=== PATIENT | male | born 1980 | race Caucasian/White ===

== ENCOUNTER 2018-11-28 09:41 | Emergency (ER) | payer MEDICAID, SELFPAY ==
[2018-11-28] VITALS (11 sets, daily range): BP systolic 131–149; BP diastolic 77–96; PULSE 65–85; RESP 14–18; TEMP 36.7; O2SAT 95–100; BMI 18.6
--- NOTE | 2018-11-28 09:57 | EKG12_ITS ---
Test Reason : SUICIDE Blood Pressure : / mmHG Vent. Rate : 062 BPM Atrial Rate : 062 BPM P-R Int : 144 ms QRS Dur : 088 ms QT Int : 392 ms P-R-T Axes : 072 -49 045 degrees QTc Int : 397 ms Normal sinus rhythm Left anterior fascicular block Abnormal ECG Confirmed by LOWELL CHAU, ROHINI ([id number]), visual effects editor EDDIE ROMERO ([id number]) on 12/01/2018 11:38:54 AM Referred By: OLYA/GUERA Confirmed By:ODILON ETIENNE MD
--- NOTE | 2018-11-28 10:05 | RAD_ITS ---
STUDY: X-RAY CHEST REASON FOR EXAM: Male, 38 years old. Chest pain. TECHNIQUE: Single AP portable view of the chest. COMPARISON: None. FINDINGS: The lungs are clear and expanded. There is no demonstrated pleural abnormality. Normal size heart. Normal mediastinum and cheri. Normal visualized pulmonary arteries. Normal visualized aortic arch and descending thoracic aorta. Normal visualized thoracic spine. Normal visualized ribs, clavicles, and shoulders. There is no demonstrated abnormality of the visualized soft tissue structures of the upper abdomen. RAD/Chest 1 View (Portable) IMPRESSION: Normal x-ray examination of the chest. Electronically Signed: Shaq Chew, at 10:46 EDT , Service support ,
[2018-11-28 10:37] LABS: Mucous, Urine 0 SEEN /hpf (<or=2+)
[2018-11-28 10:41] LABS: Absolute Lymphocyte Count 1.49 X10^3/uL (0.83-4.51); Absolute Neutrophil Count 5.6 X10^3/uL (2.0-7.7); Basophil# 0.03 X10^3/uL; Basophil% 0.4 % (0-1); Eosinophil# 0.13 X10^3/uL; Eosinophils% 1.7 % (0-5); Hematocrit 45.5 % (40-54); Hemoglobin 15.3 g/dL (13.0-16.5); Lymphocyte # 1.49 X10^3/ul (4.0); Lymphocyte % 19.1 % (19-41); Mean Corp Hgb Conc 33.6 g/dL (32-36); Mean Corpuscular Hgb 33.3 pg (27.0-32.0); Mean Corpuscular Volume 98.9 fL (80-94); Monocyte# 0.49 X10^3/uL; Monocyte% 6.3 % (0-10); NRBC Flagged by Analyzer 0 % (0-5); Neutrophil # 5.63 X10^3/uL (2.7-7.7); Neutrophil % 72.1 % (47-70); POSITIVE MORPHOLOGY YES; Platelet Count 145 K/mm3 (150-450); RBC Distribution Width CV 13.6 % (11.6-14.6); RBC Distribution Width SD 49.1 fl (35.1-43.9); White Blood Count 7.8 K/mm3 (4.4-11.0)
[2018-11-28 10:47] LABS: Differential Indicated SCAN CRITERIA MET
[2018-11-28 10:50] LABS: Color, Urine Yellow (Yellow); Glucose, Dipstick Normal (Normal); Ketone-Dipstick 5 mg/dl (Negative); Leukocyte Esterase-Dipstick 500 /ul (Negative); Nitrite-Dipstick Positive (Negative); Occult Blood-Urine 25 /ul (Negative); Protein-Dipstick 30 mg/dl (Negative); Urine Bilirubin Dipstick Negative (Negative); Urine Clarity Sl. Cloudy (Clear); Urine Urobilinogen 4 mg/dl (Normal)
[2018-11-28 11:00] LABS: Bacteria 2+ /hpf (None Seen); Red Blood Cells-Urine 0-5 SEEN /hpf (0-5); Squamous Epithelial Cells - UA 0-5 SEEN /hpf (0-5); White Blood Cells 25-50 SEEN /hpf (0-5)
[2018-11-28 11:09] LABS: Amphetamine Urine VISTA NEGATIVE (<1000 ng/mL); Barbiturate Urine VISTA NEGATIVE (< 200 ng/mL); Benzodiazepine Urine VISTA NEGATIVE (< 200 ng/mL); Cocaine Urine VISTA NEGATIVE (< 300 ng/mL); Ecstacy Urine VISTA NEGATIVE (< 500 ng/mL); Methadone Urine VISTA NEGATIVE (< 300 ng/mL); PCP Urine VISTA NEGATIVE (< 25 ng/mL); THC Urine VISTA POSITIVE (< 50 ng/mL); Vista UDS pH Range 6
[2018-11-28 11:13] LABS: ALB/GLOB Ratio 1.1 RATIO (0.9-2.4); AST(SGOT) 15 U/L (15-37); Alanine Aminotransfer ALT/SGPT 21 U/L (16-61); Albumin, Serum 3.8 g/dL (3.2-5.0); Alkaline Phosphatase 81 U/L (45-117); Anion Gap 4 (5-15); BUN 17 mg/dL (7-18); BUN/Creat Ratio 16.3 RATIO (10-20); Calcium,Total 9.1 mg/dL (8.5-10.1); Chloride 108 mmol/L (98-107); Creatinine, Serum 1.04 mg/dL (0.70-1.30); EST Glomerular Filtration Rate 85 mL/min (>60); Est Glom Filt Rate - Afr Amer 102 mL/min (>60); Estimated Creatinine Clearance 73.53 ml/min; Globulin 3.4 g/dL (2.2-4.2); Glucose 94 mg/dL (74-106); Protein, Total 7.2 g/dL (6.4-8.2); Sodium Level 139 mmol/L (136-145); Thyroid Stim Hormone (TSH) 1.45 uIU/mL (0.358-3.74)
--- NOTE | 2018-11-28 11:24 | ED.VISSUMM ---
- ER Visit Summary Date of Service: 11/28/18 Chief Complaint: Mental health clearance History of Present Illness: The patient is a 38 M brought in by law enforcement for clearance for admission to [facility]. Patient is having paranoia and delusions. He could not tell me if he is suicidal or not. Patient is denying any past mental health diagnosis, but he did say that he was hospitalized for suicidal ideation when his mom in the past. He has no other complaints at this time. He says he takes no medications. Physical Examination: Afebrile and vital signs unremarkable. Patient is in a penitentiary jumpsuit and handcuffs. Head and neck atraumatic. Heart regular peer lungs clear. Abdomen soft. Skin appears unremarkable. I am concerned the patient may have some internal stimuli. He has difficulty answering my questions. He is paranoid and delusional. Test Results: EKG shows sinus rhythm at a rate of 62. Chest x-ray normal. TSH normal. Urinalysis shows signs of infection. CBC, CMP, tox screen unremarkable except for THC. Alcohol level pending. Emergency Department Course and Treatment: Patient had a sitter because of his severe symptoms and unable to track for safety. He had a pretty unremarkable work-up. He has signs of UTI and he tested positive for THC. He is not having symptoms of UTI. He is not septic. I do not believe this is causing his symptoms. Urine culture was ordered. We will treat with Keflex. Crisis will evaluate the patient for placement. Treatment Plan: Keflex Disposition: O[facility] Impression: 1. Psychosis 2. UTI This note was generated with panpan dictation software. It may contain incorrect words, spelling, and punctuation that were not noted in review of the chart prior to signing ED Disposition - Plan for ED Patient: Referrals: Shantell Zeng [Primary Care Provider] -
[2018-11-28 11:39] LABS: Alcohol, Blood (Medical)-Serum < 3.0 mg/dL
--- NOTE | 2018-11-28 12:12 | NURSING ---
CRISIS IN ROOM
[2018-11-28] MEDS: Cephalexin 250 MG Capsule 500 MG PO ×2 (12:17→19:28)
--- NOTE | 2018-11-28 14:01 | NURSING ---
Spoke with Romina [facility]. D/t insurance, they are continuing to look for placement.
--- NOTE | 2018-11-28 18:51 | ED.RN ---
[facility] CALLED REPORTING THAT THEY ARE REVIEWING THE PT CHART AND THAT THEY DO NOT CURRENTLY HAVE ANY MALE BEDS AVAILABLE. REPORTS THAT IT MAY NOT BE UNTIL TOMORROW. SABRINA RUSSELL INFORMED.
--- NOTE | 2018-11-28 20:36 | ED.RN ---
second dose of keflex given at 1928 11/28/2018.
[2018-11-29] VITALS (16 sets, daily range): BP systolic 113–136; BP diastolic 64–87; PULSE 67–81; RESP 14–19; O2SAT 97–99
[2018-11-29] MEDS: Cephalexin 250 MG Capsule 500 MG PO ×2 (01:04→08:05)
--- NOTE | 2018-11-29 01:05 | ED.RN ---
3RD DOSE OF KEFLEX GIVEN AT 0105. MAR IS NOT REFLECTING THE MEDIATIONS BEING DUE IT SHOULD BE. ORDERED Q 6HR KEFLEX [facility] IS SCANNING IT IN FOR DAYS IN THE FUTURE. CHARGE NURSE JOSIE MADE AWARE.
--- NOTE | 2018-11-29 07:52 | NURSING ---
CALLED [facility], TALKED TO NICHOLE. SHE SAID CHART WAS FAXED TO [facility] YESTERDAY. ASKED HER TO HAVE NEW COUNSELOR TO CALL US WITH UPDATE AFTER THEIR SHIFT CHANGE
--- NOTE | 2018-11-29 09:08 | NURSING ---
PER JONATHON, KENDRICK, PATIENT SHOULD BE TRANSFERRED TODAY.
[2018-11-29] MEDS: RisperiDONE 0.5 MG Tablet PO (10:58)
--- NOTE | 2018-11-29 11:03 | NURSING ---
[facility] AND LEFT MESSAGE FOR AN UPDATE ON PATIENT
--- NOTE | 2018-11-29 11:50 | NURSING ---
CALLED CR[facility], TALKED TO JOE. HE WILL TALK TO JONATHON AND SOMEONE WILL LET US KNOW ABOUT WHAT'S GOING ON
--- NOTE | 2018-11-29 12:08 | ED.RN ---
crisis called to update that no changes at this time. [facility] will be available to accept this afternoon or early evening.
--- NOTE | 2018-11-29 14:53 | NURSING ---
JONATHON, CRISIS, CALLED. [facility] IS READY FOR PATIENT
--- NOTE | 2018-11-29 14:55 | ED.RN ---
UNIT C1, N-N [phone] EXT [phone], DR. MA
--- NOTE | 2018-11-29 15:01 | NURSING ---
CALLED [facility] FOR TRANSPORT ETA IS 1800 CALLED [facility] FOR TRANSPORT ETA IS FROM [place]
== END 2018-11-29 15:33 ==
PROVIDERS: Emergency Provider Emergency Medicine; Family Provider Family Medicine; PCP Family Medicine
DX: F29 Unspecified psychosis not due to a substance or known physiological condition (principal); N39.0 Urinary tract infection, site not specified; F12.90 Cannabis use, unspecified, uncomplicated; F32.9 Major depressive disorder, single episode, unspecified; F41.9 Anxiety disorder, unspecified; R45.851 Suicidal ideations
CPT/HCPCS: 71045; 80053; 80307; 80320; 81001; 84443; 85025; 87077; 87086; 87088; 87186; 93005; 96372; 99285; G0480; J3486

== ENCOUNTER 2023-08-29 10:39 | Emergency (ER) | payer MEDICAID, SELFPAY ==
[2023-08-29 10:40] VITALS: BP 161/68; PULSE 68; RESP 18; TEMP 36.2; O2SAT 100; BMI 18.1
--- NOTE | 2023-08-29 11:32 | EDS_ITS ---
HPI <MARBIN La - Last Filed: 08/29/23 20:24> HPI - Psych History of Present Illness Chief Complaint: Mental Health Narrative Narrative: Patient presenting today after being sent in by police for medical clearance for psychiatric placement. Patient was arrested evening due to disorderly conduct and began smearing his feces all over himself and at the skilled nursing cell, he was full body slamming against the cell door and window, he was also masturbating. Police report that patient was displaying psychotic behaviors and was evaluated by crisis who felt that he would benefit from admission to a psychiatric facility. He does have a history of drug abuse including crack cocaine and marijuana. He denies SI and hallucinations. He reports that he does not have any thoughts of hurting others unless, he gets pissed off. He has been admitted in the past to a psychiatric facility for an unspecified psychotic disorder. PFSH <MARBIN La - Last Filed: 08/29/23 20:24> [facility] Medical History Infected dental caries Seizures Stroke Allergy/AdvReac Type Severity Reaction Status Date / Time bee venom protein (honey bee) Allergy Other Verified 08/29/23 10:39 erythromycin base Allergy Swelling Verified 08/29/23 10:39 strawberry Allergy Hives Verified 08/29/23 10:39 Social History Smoking Status: Current every day smoker tobacco type: cigarettes alcohol intake: current ROS <MARBIN La - Last Filed: 08/29/23 20:24> ROS ED Constitutional Constitutional ED: Denies chills or fever(s) Cardiovascular Cardiovascular: Denies chest pain Respiratory/Chest Respiratory/Chest: Denies dyspnea Gastrointestinal Gastrointestinal: Denies abdominal pain, nausea or vomiting Genitourinary Genitourinary ED: Denies dysuria Musculoskeletal Musculoskeletal: Denies arthralgias or myalgias Integumentary Denies Abrasions Neurologic Neurologic: Denies weakness Psychiatric Psychiatric: Denies anxiety, depression, hallucinations, homicidal ideation, suicidal ideation or suicidal thoughts EXAM <MARBIN La - Last Filed: 08/29/23 20:24> Physical Exam Const Vital Signs: 08/29/23 10:40 08/29/23 16:58 08/29/23 23:39 Temperature 97.2 F L 97.7 F L 98.1 F Temperature Source Temporal Oral Temporal Pulse Rate 68 79 70 Respiratory Rate 18 17 17 Blood Pressure 161/68 H 144/88 H 117/62 Blood Pressure Mean 99 106 80 Pulse Ox 100 98 96 Oxygen Delivery Method Room Air Room Air Room Air 08/30/23 05:00 Temperature Temperature Source Pulse Rate 60 Respiratory Rate 16 Blood Pressure 125/62 H Blood Pressure Mean 83 Pulse Ox 97 Oxygen Delivery Method Room Air Positive well nourished, well developed and no apparent distress General Appearance ED: well developed HEENT Reports normocephalic and head/scalp atraumatic Mouth ED: Yes moist mucous membranes normal Eyes PERRL and EOMs intact bilaterally Neck full ROM and supple Chest Wall inspection of chest normal Resp normal respiratory effort and clear to auscultation bilaterally Cardio regular rate and regular rhythm GI soft to palpation, non-tender, non-distended and no masses Back/Spine normal ROM and normal to inspection Extremity normal to inspection and full ROM Neuro oriented x3, CN's II-XII intact bilaterally, moves all extremities, no focal motor deficits and no sensory deficits noted Sensorium / Orientation: awake and alert Psych cooperative Attitude: bizarre Thought Content: No suicidality and No homicidality Skin no rashes or lesions noted and no wounds <Dr. Gigi Liu, DO - Last Filed: 08/29/23 21:35> Physical Exam Const Vital Signs: 08/29/23 10:40 08/29/23 16:58 08/29/23 23:39 Temperature 97.2 F L 97.7 F L 98.1 F Temperature Source Temporal Oral Temporal Pulse Rate 68 79 70 Respiratory Rate 18 17 17 Blood Pressure 161/68 H 144/88 H 117/62 Blood Pressure Mean 99 106 80 Pulse Ox 100 98 96 Oxygen Delivery Method Room Air Room Air Room Air 08/30/23 05:00 Temperature Temperature Source Pulse Rate 60 Respiratory Rate 16 Blood Pressure 125/62 H Blood Pressure Mean 83 Pulse Ox 97 Oxygen Delivery Method Room Air <Dr. Reji Smith, DO - Last Filed: 08/30/23 07:16> Physical Exam Const Vital Signs: 08/29/23 10:40 08/29/23 16:58 08/29/23 23:39 Temperature 97.2 F L 97.7 F L 98.1 F Temperature Source Temporal Oral Temporal Pulse Rate 68 79 70 Respiratory Rate 18 17 17 Blood Pressure 161/68 H 144/88 H 117/62 Blood Pressure Mean 99 106 80 Pulse Ox 100 98 96 Oxygen Delivery Method Room Air Room Air Room Air 08/30/23 05:00 Temperature Temperature Source Pulse Rate 60 Respiratory Rate 16 Blood Pressure 125/62 H Blood Pressure Mean 83 Pulse Ox 97 Oxygen Delivery Method Room Air MDM <MARBIN La - Last Filed: 08/29/23 20:24> [facility] MDM Narrative Medical decision making narrative: Patient presenting after being pink slipped by crisis after displaying psychotic behaviors at the skilled nursing this weekend. He is here for medical clearance. He denies SI or HI. He did become loud and was disturbing other patients despite being asked multiple times to keep his voice down, for this reason, he was given a dose of Geodon. CBC, BMP are unremarkable, urine tox screen is positive for cannabinoids, alcohol level is negative. Patient is medically cleared and placement is pending. Lab Data Attestation: I reviewed the patient's lab results. Labs: Laboratory Results - last 24 hr 08/29/23 08/29/23 11:34 11:38 WBC 5.1 RBC 4.56 L Hgb 14.7 Hct 45.0 MCV 98.7 H MCH 32.2 H MCHC 32.7 RDW Std Deviation 47.4 H RDW Coeff of Sushant 12.9 Plt Count 135 L MPV 11.2 Immature Gran % (Auto) 0.400 Neut % (Auto) 62.8 Lymph % (Auto) 27.8 Weld % (Auto) 6.8 Eos % (Auto) 1.4 Baso % (Auto) 0.8 Absolute Neuts (auto) 3.2 Absolute Lymphs (auto) 1.43 Nucleated RBC % 0 Sodium 138 Potassium 4.1 Chloride 108 H Carbon Dioxide 27.0 Anion Gap 3 L BUN 13 Creatinine 0.81 Estim Creat Clear Calc 86.99 Est GFR (MDRD) Af Amer 133 Est GFR (MDRD) Non-Af 110 BUN/Creatinine Ratio 16.0 Glucose 96 Calcium 8.9 Urine Opiates Screen NEGATIVE Urine Methadone Screen NEGATIVE Ur Barbiturates Screen NEGATIVE Ur Phencyclidine Scrn NEGATIVE Ur Amphetamines Screen NEGATIVE MDMA (Ecstasy) Screen NEGATIVE U Benzodiazepines Scrn NEGATIVE Urine Cocaine Screen NEGATIVE U Cannabinoids Screen POSITIVE H Ur Drug Screen Comment Ethyl Alcohol < 3.0 <Dr. Gigi Liu, DO - Last Filed: 08/29/23 21:35> [facility] Narrative Medical decision making narrative: Patient presenting after being pink slipped by crisis after displaying psychotic behaviors at the skilled nursing this weekend. He is here for medical clearance. He denies SI or HI. He did become loud and was disturbing other patients despite being asked multiple times to keep his voice down, for this reason, he was given a dose of Geodon. CBC, BMP are unremarkable, urine tox screen is positive for cannabinoids, alcohol level is negative. Patient is medically cleared and placement is pending. 2130: Le. Patient signed out to me has been medically cleared he was given Geodon, no issues during my shift. Patient accepted to [facility] under service Dr. Mcgraw. Lab Data Labs: Laboratory Results - last 24 hr 08/29/23 08/29/23 11:34 11:38 WBC 5.1 RBC 4.56 L Hgb 14.7 Hct 45.0 MCV 98.7 H MCH 32.2 H MCHC 32.7 RDW Std Deviation 47.4 H RDW Coeff of Sushant 12.9 Plt Count 135 L MPV 11.2 Immature Gran % (Auto) 0.400 Neut % (Auto) 62.8 Lymph % (Auto) 27.8 Weld % (Auto) 6.8 Eos % (Auto) 1.4 Baso % (Auto) 0.8 Absolute Neuts (auto) 3.2 Absolute Lymphs (auto) 1.43 Nucleated RBC % 0 Sodium 138 Potassium 4.1 Chloride 108 H Carbon Dioxide 27.0 Anion Gap 3 L BUN 13 Creatinine 0.81 Estim Creat Clear Calc 86.99 Est GFR (MDRD) Af Amer 133 Est GFR (MDRD) Non-Af 110 BUN/Creatinine Ratio 16.0 Glucose 96 Calcium 8.9 Urine Opiates Screen NEGATIVE Urine Methadone Screen NEGATIVE Ur Barbiturates Screen NEGATIVE Ur Phencyclidine Scrn NEGATIVE Ur Amphetamines Screen NEGATIVE MDMA (Ecstasy) Screen NEGATIVE U Benzodiazepines Scrn NEGATIVE Urine Cocaine Screen NEGATIVE U Cannabinoids Screen POSITIVE H Ur Drug Screen Comment Ethyl Alcohol < 3.0 <Dr. Reji Smith, DO - Last Filed: 08/30/23 07:16> MDM MDM Narrative Medical decision making narrative: Patient presenting after being pink slipped by crisis after displaying psychotic behaviors at the skilled nursing this weekend. He is here for medical clearance. He denies SI or HI. He did become loud and was disturbing other patients despite being asked multiple times to keep his voice down, for this reason, he was given a dose of Geodon. CBC, BMP are unremarkable, urine tox screen is positive for cannabinoids, alcohol level is negative. Patient is medically cleared and placement is pending. 2130: Le. Patient signed out to me has been medically cleared he was given Geodon, no issues during my shift. Patient accepted to [facility] under service Dr. Mcgraw. ED attending note: I evaluated the patient in conjunction with the ELSY. I agree with his/her statements and above findings. I have personally performed a face to face assessment of the patient and have reviewed the ELSY Note. I performed a substantive portion of the visit including all aspects of the following. I personally saw the patient performed chart review, physical exam, reviewed labs, imaging (if obtained), and formulated a treatment and management plan. This note was generated with [employer] dictation software. It may contain incorrect words, spelling, and punctuation that were not noted in review of the chart prior to signing. Lab Data Labs: Laboratory Results - last 24 hr 08/29/23 08/29/23 11:34 11:38 WBC 5.1 RBC 4.56 L Hgb 14.7 Hct 45.0 MCV 98.7 H MCH 32.2 H MCHC 32.7 RDW Std Deviation 47.4 H RDW Coeff of Sushant 12.9 Plt Count 135 L MPV 11.2 Immature Gran % (Auto) 0.400 Neut % (Auto) 62.8 Lymph % (Auto) 27.8 Weld % (Auto) 6.8 Eos % (Auto) 1.4 Baso % (Auto) 0.8 Absolute Neuts (auto) 3.2 Absolute Lymphs (auto) 1.43 Nucleated RBC % 0 Sodium 138 Potassium 4.1 Chloride 108 H Carbon Dioxide 27.0 Anion Gap 3 L BUN 13 Creatinine 0.81 Estim Creat Clear Calc 86.99 Est GFR (MDRD) Af Amer 133 Est GFR (MDRD) Non-Af 110 BUN/Creatinine Ratio 16.0 Glucose 96 Calcium 8.9 Urine Opiates Screen NEGATIVE Urine Methadone Screen NEGATIVE Ur Barbiturates Screen NEGATIVE Ur Phencyclidine Scrn NEGATIVE Ur Amphetamines Screen NEGATIVE MDMA (Ecstasy) Screen NEGATIVE U Benzodiazepines Scrn NEGATIVE Urine Cocaine Screen NEGATIVE U Cannabinoids Screen POSITIVE H Ur Drug Screen Comment Ethyl Alcohol < 3.0 Discharge Plan Triage Chief Complaint: Mental Health ED Midlevel Provider: Dilcia Valdez ED Provider: Reji Smith Dx/Rx/DC Orders Clinical Impression: Psychotic disorder, Tetrahydrocannabinol (THC) use disorder, mild, abuse Primary Care Provider: Care Physician,No Primary Referrals: Care Physician,No Primary [Primary Care Provider] - Print Language: [place] Irish Disposition Disposition: Psychiatric Hospital or Unit Discharge Location: [facility]
[2023-08-29 11:45] LABS: Absolute Lymphocyte Count 1.43 X10^3/uL (0.83-4.51); Absolute Neutrophil Count 3.2 X10^3/uL (2.0-7.7); Basophil# 0.04 X10^3/uL; Basophil% 0.8 % (0-1); Eosinophil# 0.07 X10^3/uL; Eosinophils% 1.4 % (0-5); Hemoglobin 14.7 g/dL (13.0-16.5); Lymphocyte # 1.43 X10^3/ul (0.83-4.51); Lymphocyte % 27.8 % (19-41); Mean Corp Hgb Conc 32.7 g/dL (32-36); Mean Corpuscular Hgb 32.2 pg (27.0-32.0); Mean Corpuscular Volume 98.7 fL (80-94); Mean Platelet Vol. 11.2 fl (6.2-12.0); Monocyte# 0.35 X10^3/uL; Monocyte% 6.8 % (0-10); NRBC Flagged by Analyzer 0 % (0-5); Neutrophil # 3.23 X10^3/uL (2.7-7.7); Neutrophil % 62.8 % (47-70); Platelet Count 135 K/mm3 (150-450); RBC Distribution Width CV 12.9 % (11.6-14.6); RBC Distribution Width SD 47.4 fl (35.1-43.9); Red Blood Count 4.56 M/mm3 (4.6-6.2); White Blood Count 5.1 K/mm3 (4.4-11.0)
[2023-08-29 11:57] LABS: Alcohol, Blood (Medical)-Serum < 3.0 mg/dL; Anion Gap 3 (5-15); BUN 13 mg/dL (7-18); Calcium,Total 8.9 mg/dL (8.5-10.1); Chloride 108 mmol/L (98-107); Creatinine, Serum 0.81 mg/dL (0.70-1.30); EST Glomerular Filtration Rate 110 mL/min (>60); Est Glom Filt Rate - Afr Amer 133 mL/min (>60); Estimated Creatinine Clearance 86.99 ml/min; Glucose 96 mg/dL (74-106); Potassium 4.1 mmol/L (3.5-5.1); Sodium Level 138 mmol/L (136-145)
[2023-08-29 12:23] LABS: Amphetamine Urine VISTA NEGATIVE (<1000 ng/mL); Barbiturate Urine VISTA NEGATIVE (< 200 ng/mL); Benzodiazepine Urine VISTA NEGATIVE (< 200 ng/mL); Cocaine Urine VISTA NEGATIVE (< 300 ng/mL); Ecstacy Urine VISTA NEGATIVE (< 500 ng/mL); Methadone Urine VISTA NEGATIVE (< 300 ng/mL); PCP Urine VISTA NEGATIVE (< 25 ng/mL); THC Urine VISTA POSITIVE (< 50 ng/mL); Vista UDS pH Range 6
--- NOTE | 2023-08-29 13:06 | NURSING ---
FAXED CHART TO CRISIS
--- NOTE | 2023-08-29 13:09 | NURSING ---
CRISIS IN ER
[2023-08-29] MEDS: Ziprasidone IM 20 MG/ML VIAL IM (15:03)
[2023-08-29 16:58] VITALS: BP 144/88; PULSE 79; RESP 17; TEMP 36.5; O2SAT 98
--- NOTE | 2023-08-29 22:22 | ED.RN ---
Report given to Sherice RUSSELL at [facility]
[2023-08-29 23:39] VITALS: BP 117/62; PULSE 70; RESP 17; TEMP 36.7; O2SAT 96
[2023-08-30 05:00] VITALS: BP 125/62; PULSE 60; RESP 16; O2SAT 97
[2023-08-30 07:33] VITALS: BP 121/76; PULSE 72; RESP 14; TEMP 36.6; O2SAT 100
--- NOTE | 2023-08-30 07:33 | ED.RN ---
transporting squad in department
== END 2023-08-30 07:39 ==
PROVIDERS: Physician Assistant; Emergency Provider Emergency Medicine; Visit Provider Emergency Medicine
DX: F29 Unspecified psychosis not due to a substance or known physiological condition (principal); F12.10 Cannabis abuse, uncomplicated; F17.200 Nicotine dependence, unspecified, uncomplicated; Z86.73 Personal history of transient ischemic attack (TIA), and cerebral infarction without residual deficits
CPT/HCPCS: 80048; 80307; 80320; 85025; 99285; A4216; G0480; J3486

== ENCOUNTER 2023-09-16 12:50 | Emergency (ER) | payer MEDICAID, SELFPAY ==
[2023-09-16 12:58] VITALS: BP 94/60; PULSE 59; RESP 18; TEMP 37.1; O2SAT 99; BMI 24.2
--- NOTE | 2023-09-16 15:03 | EKG12_ITS ---
Test Reason : SEIZURE Blood Pressure : / mmHG Vent. Rate : 052 BPM Atrial Rate : 052 BPM P-R Int : 166 ms QRS Dur : 098 ms QT Int : 486 ms P-R-T Axes : 068 -52 -66 degrees QTc Int : 451 ms Sinus bradycardia Left anterior fascicular block T wave abnormality, consider inferolateral ischemia Abnormal ECG Confirmed by John Townsend ([id number]), photographic editor NAPOLEON ARNOLD ([id number]) on 09/19/2023 8:13:33 AM Referred By: Confirmed By:John Townsend
--- NOTE | 2023-09-16 15:03 | CT_ITS ---
INDICATION: seizure EXAMINATION: CT BRAIN - CT Head or Brain W/O Contrast Injection TECHNIQUE: Multiple axial images were obtained of the head without intravenous contrast. The protocol utilizes one or more of the following dose reduction techniques: automated exposure control, adjustment of mA and/or kV according to patient size,and/or use of iterative reconstruction technique. IV Contrast dosage and agent: None. RADIATION DOSAGE (If Supplied By Facility): CTDIvol = ( 44.99 ) mGy, DLP = ( 812.98 ) mGycm COMPARISON: No relevant prior comparison study available FINDINGS: BRAIN PARENCHYMA: No intra- or extra-axial hemorrhage. There is encephalomalacia within the left middle cerebral artery territory including the left posterior frontal, lateral occipital and temporal lobes. No evidence of acute infarct. No intracranial mass or mass effect. There is preservation of the tyler/white matter interface. Posterior fossa structures are unremarkable. CSF SPACES: Appropriate for age. No hydrocephalus. Basal cisterns are patent. CALVARIUM, SKULL BASE, PARANASAL SINUSES AND MASTOID AIR CELLS: Clear. No discrete lytic or blastic abnormalities. ORBITS: Both globes, extraocular muscles, optic nerves and retrobulbar fat appear unremarkable. ASPECTS Score for Acute Strokes: 10 CT/Brain/Head without Contrast IMPRESSION: No acute intracranial process. Old left MCA infarct. Electronically Signed: Precious Blake MD at 16:09 EDT ,
[2023-09-16] MEDS: 0.9% Normal Saline (1000mL) 1,000 ML 999 ML IV (15:20)
--- NOTE | 2023-09-16 15:20 | RAD_ITS ---
STUDY: X-RAY CHEST REASON FOR EXAM: Male, 43 years old. Cough. TECHNIQUE: Single frontal view of the chest. COMPARISON: November 28, 2018 FINDINGS: The lungs are clear and expanded. There is no demonstrated pleural abnormality. Normal size heart. Normal mediastinum and cheri. Normal visualized pulmonary arteries. Normal visualized aortic arch and descending thoracic aorta. No abnormality of the visualized soft tissue structures of the upper abdomen. RAD/Chest 1 View (Portable) IMPRESSION: No interval change and no acute or active cardiopulmonary disease. Electronically Signed: Km Spangler MD at 15:28 EDT ,
[2023-09-16 15:24] VITALS: BP 110/64; PULSE 51; RESP 14; O2SAT 98
[2023-09-16 15:29] LABS: Absolute Lymphocyte Count 1.31 X10^3/uL (0.83-4.51); Absolute Neutrophil Count 4.1 X10^3/uL (2.0-7.7); Basophil# 0.03 X10^3/uL; Basophil% 0.5 % (0-1); Eosinophil# 0.01 X10^3/uL; Eosinophils% 0.2 % (0-5); Hematocrit 40.9 % (40-54); Hemoglobin 13.8 g/dL (13.0-16.5); Lymphocyte # 1.31 X10^3/ul (0.83-4.51); Lymphocyte % 22.8 % (19-41); Mean Corp Hgb Conc 33.7 g/dL (32-36); Mean Corpuscular Hgb 32.8 pg (27.0-32.0); Mean Corpuscular Volume 97.1 fL (80-94); Monocyte% 5.2 % (0-10); NRBC Flagged by Analyzer 0 % (0-5); Neutrophil # 4.06 X10^3/uL (2.7-7.7); Neutrophil % 70.8 % (47-70); Platelet Count 174 K/mm3 (150-450); RBC Distribution Width CV 13.2 % (11.6-14.6); RBC Distribution Width SD 46.7 fl (35.1-43.9); Red Blood Count 4.21 M/mm3 (4.6-6.2); White Blood Count 5.7 K/mm3 (4.4-11.0)
--- NOTE | 2023-09-16 15:45 | EX.ED.DYSGE1 ---
HPI <GISELLE Espinoza - Last Filed: 09/16/23 16:21> History of Present Illness Chief Complaint: Seizure Narrative Narrative: Patient's 43-year-old male with history of drug abuse, seizure activity, stroke 2 years ago presents to the emergency department for recheck. Patient states he was recently admitted for psychiatric facility. Patient was then arrested, and secondary to her 1 was brought to [place]. Patient was stating that he had a seizure, and the police then dropped him off at the hospital here. Patient states he does have seizures, his last 1 was today, before that was 2 weeks ago. Patient states he just wants to get checked out, he denies any specific pain. He states he still uses marijuana and drinks alcohol for no other drug abuse. PFSH <GISELLE Espinoza - Last Filed: 09/16/23 16:21> PFSH Medical History Infected dental caries Seizures Stroke Allergy/AdvReac Type Severity Reaction Status Date / Time bee venom protein (honey bee) Allergy Other Verified 09/16/23 12:58 erythromycin base Allergy Swelling Verified 09/16/23 12:58 strawberry Allergy Hives Verified 09/16/23 12:58 Social History Smoking Status: Current every day smoker tobacco type: cigarettes alcohol intake: current ROS <GISELLE Espinoza - Last Filed: 09/16/23 16:21> ROS ED ROS Narrative Constitutional: Negative for fever, chills, weight loss, weakness Eyes: Negative for vision loss, vision change, double vision ENT: Negative for any sore throat, ear pain, congestion Cardiovascular: Negative for any chest pain, tightness, palpitations Respiratory: Negative for any cough, sputum production, hemoptysis, dyspnea, dyspnea on exertion, orthopnea Gastrointestinal: Negative for any abdominal pain, nausea, vomiting, diarrhea, constipation, blood in stool, blood in vomit : Negative for any urinary frequency, dysuria, retention, blood in urine Muscle skeletal: Negative for any neck pain, back pain Neurological: Negative for any headache, syncope, dizziness. Positive for seizure Skin: Negative for any rashes, itching, abrasions, lacerations Psychiatric: Negative for any depression, anxiety, stress, suicidal ideation, homicidal ideation Hematologic: Negative for any excessive bruising, easy bleeding EXAM <GISELLE Espinoza - Last Filed: 09/16/23 16:21> Physical Exam Narrative Exam Narrative: Vital signs reviewed. Patient is in no obvious distress. Patient is alert and oriented. HEET: Head normocephalic atraumatic, TMs clear bilaterally. Posterior pharynx is clear, moist mucous membranes. Nares clear bilaterally. Poor dentition Neck: Supple with no lymphadenopathy or tenderness. No signs of meningismus. Cardiac: Bradycardic, no murmurs gallops or rubs, equal peripheral pulses bilaterally. Respiratory: Lungs clear to auscultation bilaterally. No chest tenderness. Abdomen: Soft, nontender, nondistended. No abdominal bruit or pulsatile masses. No hepatosplenomegaly Extremities: No peripheral edema, no signs of gross trauma or deformity. Active full range of motion of all extremities. Neuro: Cranial nerves II through XII intact, no focal neurological deficits. Skin: Clean dry and intact with no rash, purpura, petechiae, vesicles or pustules. Backs/flank: No CVA tenderness, no midline spinal tenderness, no deformity. Psych: Normal mood and affect. No SI, HI or acute psychosis. Const Vital Signs: 09/16/23 12:58 09/16/23 15:24 Temperature 98.7 F Temperature Source Temporal Pulse Rate 59 L 51 L Respiratory Rate 18 14 Blood Pressure 94/60 110/64 Blood Pressure Mean 71 79 Pulse Ox 99 98 Oxygen Delivery Method Room Air Room Air Positive well nourished and well developed General Appearance ED: well developed <Dr. Margarita Betancourt DO - Last Filed: 09/19/23 07:54> Physical Exam Const Vital Signs: 09/16/23 12:58 09/16/23 15:24 Temperature 98.7 F Temperature Source Temporal Pulse Rate 59 L 51 L Respiratory Rate 18 14 Blood Pressure 94/60 110/64 Blood Pressure Mean 71 79 Pulse Ox 99 98 Oxygen Delivery Method Room Air Room Air MDM <GISELLE Espinoza - Last Filed: 09/16/23 16:21> MDM Lab Data Labs: Laboratory Results - last 24 hr 09/16/23 15:11 WBC 5.7 RBC 4.21 L Hgb 13.8 Hct 40.9 MCV 97.1 H MCH 32.8 H MCHC 33.7 RDW Std Deviation 46.7 H RDW Coeff of Sushant 13.2 Plt Count 174 MPV 11.0 Immature Gran % (Auto) 0.500 Neut % (Auto) 70.8 H Lymph % (Auto) 22.8 Sterling % (Auto) 5.2 Eos % (Auto) 0.2 Baso % (Auto) 0.5 Absolute Neuts (auto) 4.1 Absolute Lymphs (auto) 1.31 Nucleated RBC % 0 Sodium 137 Potassium 3.1 L Chloride 106 Carbon Dioxide 21.0 Anion Gap 10 BUN 16 Creatinine 0.92 Estim Creat Clear Calc 93.43 Est GFR (MDRD) Af Amer 115 Est GFR (MDRD) Non-Af 95 BUN/Creatinine Ratio 17.4 Glucose 181 H Calcium 8.3 L Troponin I High Sens 12 Radiography Diagnostic Testing: Clinical Impression(s) from Imaging Studies Brain CT 09/16/23 15:03 IMPRESSION: No acute intracranial process. Old left MCA infarct. Electronically Signed: Precious Blake MD at 16:09 EDT , Chest X-Ray 09/16/23 15:20 IMPRESSION: No interval change and no acute or active cardiopulmonary disease. Electronically Signed: Km Spangler MD at 15:28 EDT , EKG Sinus bradycardia: Attestation: I personally reviewed and interpreted this EKG as follows: Comments: Sinus bradycardia, rate of 52 bpm, DC interval 166 ms, QRS duration 98 ms, no acute ST elevation, no acute infarct noted. Treatment and Re-Evaluation :: Differential diagnosis includes however is not limited to: Acute on chronic seizure, CVA, electrolyte abnormality Patient appears to be in no obvious distress, vital signs are stable. Presenting to the emergency department to get checked out. Patient will receive a CT scan of the brain secondary to history of stroke and seizures. Chest x-ray as well as laboratory values including troponin. Patient will need to follow-up outpatient. Patient is in no pain at this time. Patient given IV fluids. Patient CT scan of the brain shows no acute intracranial process. Old left MCA infarct. Patient's chest x-ray showed no acute process. Laboratory eval showed a normal CBC, chemistries were unremarkable, slight hyponatremia. Patient at this time is stable for discharge. He does need to follow-up with his PCP. He is happy with the plan of care, strict return for any worsening symptoms. <Dr. Margarita Betancourt, DO - Last Filed: 09/19/23 07:54> [facility] Lab Data Attestation: I reviewed the patient's lab results. Labs: Laboratory Results - last 24 hr 09/16/23 15:11 WBC 5.7 RBC 4.21 L Hgb 13.8 Hct 40.9 MCV 97.1 H MCH 32.8 H MCHC 33.7 RDW Std Deviation 46.7 H RDW Coeff of Sushant 13.2 Plt Count 174 MPV 11.0 Immature Gran % (Auto) 0.500 Neut % (Auto) 70.8 H Lymph % (Auto) 22.8 Sterling % (Auto) 5.2 Eos % (Auto) 0.2 Baso % (Auto) 0.5 Absolute Neuts (auto) 4.1 Absolute Lymphs (auto) 1.31 Nucleated RBC % 0 Sodium 137 Potassium 3.1 L Chloride 106 Carbon Dioxide 21.0 Anion Gap 10 BUN 16 Creatinine 0.92 Estim Creat Clear Calc 93.43 Est GFR (MDRD) Af Amer 115 Est GFR (MDRD) Non-Af 95 BUN/Creatinine Ratio 17.4 Glucose 181 H Calcium 8.3 L Troponin I High Sens 12 Radiography Chest X-Ray - ED: 1 View, Read by ED Physician, Read by Radiologist and No Acute Disease Diagnostic Testing: Clinical Impression(s) from Imaging Studies Brain CT 09/16/23 15:03 IMPRESSION: No acute intracranial process. Old left MCA infarct. Electronically Signed: Precious Blake MD at 16:09 EDT , Chest X-Ray 06/28/24 15:20 IMPRESSION: No interval change and no acute or active cardiopulmonary disease. Electronically Signed: Km Spangler MD at 15:28 EDT , Treatment and Re-Evaluation :: Differential diagnosis includes however is not limited to: Acute on chronic seizure, CVA, electrolyte abnormality Patient appears to be in no obvious distress, vital signs are stable. Presenting to the emergency department to get checked out. Patient will receive a CT scan of the brain secondary to history of stroke and seizures. Chest x-ray as well as laboratory values including troponin. Patient will need to follow-up outpatient. Patient is in no pain at this time. Patient given IV fluids. Patient CT scan of the brain shows no acute intracranial process. Old left MCA infarct. Patient's chest x-ray showed no acute process. Laboratory eval showed a normal CBC, chemistries were unremarkable, slight hyponatremia. Patient at this time is stable for discharge. He does need to follow-up with his PCP. He is happy with the plan of care, strict return for any worsening symptoms. I have personally performed a face to face assessment of the patient and have reviewed the ELSY Note. I performed a substantive portion of the visit including all aspects of the following. My james findings include: History is patient is a 43-year-old male with history of prior stroke with residual right-sided deficits, bipolar disorder, substance abuse and reported seizures presenting for evaluation after seizure-like activity. Apparently patient was recently and [place] police custody and had unwitnessed seizure activity. When asked why he thinks he had a seizure patient states He just knows. Denies any biting of his tongue or urinary incontinence. He states he just like to be checked out. Patient was recently admitted in [place] at the [facility]. Patient has no acute complaints at this time. Evaluation clean CT of the brain as well as labs does not show any significant process. He has a history of a prior stroke but does not have any acute neurologic symptoms.No leukocytosis or signs of acute infection. He is mildly hyperglycemic and potassium mildly low at 3.1. Patient will be discharged from the emergency room. He is agreeable with this. Other additions or changes: [None] Discharge Plan Triage Chief Complaint: Seizure ED Midlevel Provider: Brijesh Trent ED Provider: Margarita Betancourt Dx/Rx/DC Orders Clinical Impression: Seizure, Cannabis use disorder, History of cardioembolic cerebrovascular accident (CVA) Instructions: ED Marijuana Abuse, ED Seizure, Recurrent (Adult) Primary Care Provider: Care Physician,No Primary Referrals: Brijesh Mariee MD [Med Staff - Active Staff] - Care Physician,No Primary [Primary Care Provider] - Activity Restrictions/Additional Instructions: You need to follow-up outpatient. Stay away from alcohol. Print Language: Chilean Disposition Disposition: Home, Self Care Discharge Date/Time: 09/16/23 16:36
[2023-09-16 15:51] LABS: Anion Gap 10 (5-15); BUN 16 mg/dL (7-18); BUN/Creat Ratio 17.4 RATIO (10-20); Calcium,Total 8.3 mg/dL (8.5-10.1); Chloride 106 mmol/L (98-107); Creatinine, Serum 0.92 mg/dL (0.70-1.30); EST Glomerular Filtration Rate 95 mL/min (>60); Est Glom Filt Rate - Afr Amer 115 mL/min (>60); Estimated Creatinine Clearance 93.43 ml/min; Glucose 181 mg/dL (74-106); Potassium 3.1 mmol/L (3.5-5.1); Sodium Level 137 mmol/L (136-145); Troponin-I HS 12 pg/mL (3.0-78.0)
[2023-09-16 16:35] VITALS: BP 97/63; PULSE 78; RESP 18; TEMP 36.6; O2SAT 100
== END 2023-09-16 16:36 | disposition home or self-care (01) ==
PROVIDERS: Nurse Practitioner; Emergency Provider Emergency Medicine; Visit Provider Emergency Medicine
DX: R56.9 Unspecified convulsions (principal); F12.90 Cannabis use, unspecified, uncomplicated; F17.200 Nicotine dependence, unspecified, uncomplicated; Z86.73 Personal history of transient ischemic attack (TIA), and cerebral infarction without residual deficits
CPT/HCPCS: 70450; 71045; 80048; 84484; 85025; 93005; 96360; 99283; J7030